=== PATIENT | female | born 1950 | race Caucasian/White ===

== ENCOUNTER 2019-10-10 10:01 | Outpatient (CLI) | payer MEDICARE, SELFPAY ==
[2019-10-10 10:56] LABS: Creatinine Urine 109.1 mg/dL; Total Protein Urine Random 24 mg/dL
[2019-10-10 11:02] LABS: Albumin Level 4.1 g/dL (3.5-5.1); Blood Urea Nitrogen 35 mg/dL (7-17); Calcium 10.7 mg/dL (8.4-10.2); Carbon Dioxide 22 mmol/L (22-30); Chloride 107 mmol/L (98-107); Estimated Glomerular Filt Rate 26; Glucose 110 mg/dL (65-105); Phosphorus 2.9 mg/dL (2.5-4.5); Potassium 4.5 mmol/L (3.4-5.0); Sodium 140 mmol/L (137-145)
[2019-10-10 11:13] LABS: Parathyroid Intact 426.6 pg/mL (7.5-53.5)
[2019-10-10 12:03] LABS: Vitamin D 25 Hydroxy 39.7 ng/mL
== END 2019-10-10 10:02 | disposition home or self-care (01) ==
PROVIDERS: PCP Internal Medicine; Visit Provider Internal Medicine Nephrology
DX: N18.4 Chronic kidney disease, stage 4 (severe) (principal)
CPT/HCPCS: 36415; 80069; 82306; 82570; 83970; 84156

== ENCOUNTER 2020-04-14 09:05 | Outpatient (CLI) | payer MEDICARE, SELFPAY ==
[2020-04-14 09:24] LABS: Mean Corpuscular HGB Conc 32.5 g/dl (32-36); Mean Corpuscular Volume 95.5 fl (80-100); Platelet Count Result 215 k/mm3 (150-375); Red Blood Count 4.19 M/mm3 (4.2-5.4); Red Cell Distribution Width 13.6 % (11.5-14.5); White Blood Count 6.5 K/mm3 (4.5-10.0)
[2020-04-14 09:33] LABS: Creatinine Urine 97.1 mg/dL; Total Protein Urine Random 42 mg/dL
[2020-04-14 09:39] LABS: Albumin Level 3.9 g/dL (3.5-5.1); Anion Gap 9 mmol/L (8-16); Blood Urea Nitrogen 28 mg/dL (7-17); Calcium 10.4 mg/dL (8.4-10.2); Carbon Dioxide 23 mmol/L (22-30); Chloride 107 mmol/L (98-107); Estimated Glomerular Filt Rate 28; Glucose 160 mg/dL (65-105); Phosphorus 3.2 mg/dL (2.5-4.5); Potassium 4.3 mmol/L (3.4-5.0); Sodium 139 mmol/L (137-145)
[2020-04-14 09:50] LABS: Parathyroid Intact 452.8 pg/mL (7.5-53.5)
[2020-04-14 10:06] LABS: Vitamin D 25 Hydroxy 34.6 ng/mL
== END 2020-04-14 09:06 | disposition home or self-care (01) ==
LOC: ANHLAB 09:08
PROVIDERS: PCP Internal Medicine; Visit Provider Internal Medicine Nephrology
DX: N18.4 Chronic kidney disease, stage 4 (severe) (principal)
CPT/HCPCS: 36415; 80069; 82306; 82570; 83970; 84156; 85027

== ENCOUNTER 2020-10-08 09:57 | Outpatient (CLI) | payer MEDICARE, SELFPAY ==
[2020-10-08 10:27] LABS: Hematocrit 41.6 % (37.0-47.0); Hemoglobin 13.7 g/dL (12.0-15.0); Mean Corpuscular HGB Conc 32.9 g/dl (32-36); Mean Corpuscular Hemoglobin 32.3 pg (26-34); Mean Corpuscular Volume 98.1 fl (80-100); Mean Platelet Volume 8.9 fl (7.4-10.4); Platelet Count Result 182 k/mm3 (150-375); Red Blood Count 4.24 M/mm3 (4.2-5.4); Red Cell Distribution Width 13.2 % (11.5-14.5); White Blood Count 5.4 K/mm3 (4.5-10.0)
[2020-10-08 10:58] LABS: Total Protein Urine Random 71 mg/dL
[2020-10-08 11:08] LABS: Anion Gap 7 mmol/L (8-16); Blood Urea Nitrogen 32 mg/dL (7-17); Calcium 10.6 mg/dL (8.4-10.2); Carbon Dioxide 23 mmol/L (22-30); Chloride 112 mmol/L (98-107); Estimated Glomerular Filt Rate 26; Glucose 116 mg/dL (65-105); Phosphorus 3.2 mg/dL (2.5-4.5); Potassium 4.8 mmol/L (3.4-5.0); Sodium 142 mmol/L (137-145)
[2020-10-08 11:51] LABS: Vitamin D 25 Hydroxy 37.9 ng/mL
[2020-10-08 12:05] LABS: Parathyroid Intact 492.3 pg/mL (7.5-53.5)
== END 2020-10-08 09:58 | disposition home or self-care (01) ==
LOC: ANHLAB 10:00
PROVIDERS: PCP Internal Medicine; Visit Provider Internal Medicine Nephrology
DX: N18.30 Chronic kidney disease, stage 3 unspecified (principal)
CPT/HCPCS: 36415; 80069; 82306; 82570; 83970; 84156; 85027